=== PATIENT | female | born 1955 | race Caucasian/White ===

== ENCOUNTER 2018-10-12 11:08 | Day surgery (SDC) | payer BC ==
--- NOTE | 2018-10-11 12:27 | HP ---
PREOPERATIVE HISTORY AND PHYSICAL: DATE OF SURGERY/ADMISSION: 10/12/18 DATE OF OFFICE VISIT/ENCOUNTER: 10/11/18 ATTENDING SURGEON: Daija Bonilla MD * (DICTATED BY AZAM OBREGON) PROCEDURE: Open reduction and internal fixation, left wrist. CHIEF COMPLAINT: Left distal radius fracture after fall. HISTORY OF PRESENT ILLNESS: This is a 62-year-old female. 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 She sustained injury to her left wrist on 10/05 when she was in [place] and she tripped over a curb at the [employer]. She landed on an outstretched right hand. She was seen in the emergency room in [place]. The fracture was reduced and splinted, but the doctor there told her that she likely needed surgery. She denies any associated numbness or tingling. She denies any other injury. After review of x-rays and evaluation by Dr. Bonilla, she has consented to proceed with surgical intervention in the form of an open reduction and internal fixation, left wrist. PAST MEDICAL HISTORY: 1. History of TIA approximately 6 years ago. 2. High cholesterol. 3. Hypertension. 4. Anxiety/depression. PAST SURGICAL HISTORY: 1. . 2. Shoulder surgery. CURRENT MEDICATIONS: 1. Aspirin 325 mg daily. 2. Ativan 1 mg daily. 3. Atorvastatin calcium 40 mg daily. 4. Cymbalta daily. 5. Trileptal 300 mg 1 tab 2 a.m., 2 tabs q.h.s. 6. Wellbutrin 1 tab in the morning and 2 tabs in the evening. ALLERGIES: No known drug allergies. FAMILY MEDICAL HISTORY: Heart disease, diabetes, Parkinson's disease. 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 She denies tobacco use and recreational drug use. She drinks alcohol on rare occasion. REVIEW OF SYSTEMS: Negative for general, cephalic, cardiovascular, respiratory , GI, , other musculoskeletal, integumentary, endocrine, neurologic, and hematologic symptoms. Infectious Diseases: Negative for MRSA, hepatitis C, HIV. PHYSICAL EXAMINATION GENERAL: Well-developed, well-nourished 62-year-old female, in no acute distress. VITAL SIGNS: Height 5 feet 6 inches, weight 157 pounds. Pulse rate 79, blood pressure 128/78. HEENT: Normocephalic, atraumatic. Pupils are equal, round, and reactive to light and accommodation. Extraocular movements are intact. Throat is clear. NECK: Supple. No palpable lymph nodes. PULMONARY: Lungs are clear to auscultation bilaterally. No wheezes, rales, or rhonchi. CARDIOVASCULAR: Regular rate and rhythm. S1, S2. No murmurs, rubs, or gallops. No edema. ABDOMEN: Positive bowel sounds, soft, nontender. NEUROLOGICAL: Alert and oriented x3. Cranial nerves II through XII are intact. Sensation is intact to light touch. MUSCULOSKELETAL: On exam of her left wrist, she is maintained in a sugar-tong splint. Her fingers have minimal swelling. She has good movement in the fingers. Neurovascular function is intact. IMAGING STUDIES: X-rays, AP, lateral of the left wrist show comminuted intraarticular fracture of the left distal radius. Post reduction x-rays show persistent apex volar angulation. IMPRESSION: Left distal radius fracture. PLAN: The patient is scheduled to undergo an open reduction and internal fixation, left wrist, with Dr. Bonilla on 10/12/18. She will return to the office 10 days postop for followup and suture removal. A prescription for Tylenol No. 3 was e- scribed to the patient's pharmacy for postoperative pain management. AZAM OBREGON [id number]/[facility] #: [id number] [place]
[~2018-10-12 11:08] MED LIST: Buffered Lidocaine 1% SYRIN* 1 ML/SYRINGE INTRADERM ONE; Bupivacaine 0.5% PF 10 ML VIAL INJ ONE; Dexamethasone TAB* 4 MG PO ONE; Famotidine IV* 10 MG/ML 2 ML (20 mg) IV ONE; Lactated Ringers 1000 ML Bag* 1,000 ML IV SCH
[2018-10-12] MEDS ORDERED: ceFAZolin 2 GM PREMIX in ORs 2 GM/50 ML BAG IVPB ONE (11:18)
[2018-10-12] MEDS ORDERED: Dexamethasone TAB* 4 MG ONE (11:18)
[2018-10-12] MEDS ORDERED: Famotidine IV* 10 MG/ML 2 ML (20 mg) ONE (11:19)
[2018-10-12] MEDS ORDERED: fentaNYL* 50 MCG/ML 2 ML VIAL (100 MCG VIAL) ONE ×2 (12:58→13:26)
[2018-10-12] MEDS ORDERED: Midazolam* 1 MG/ML 2 ML VIAL (2 MG) ONE (12:59)
[2018-10-12] MEDS ORDERED: Lidocaine 1% INJ* 10 MG/ML 30 ML SDV ONE (13:02)
[2018-10-12] MEDS ORDERED: ROPIVACAINE 5 MG/ML 30 ML BTL (0.5%) ONE (13:02)
[2018-10-12] MEDS ORDERED: Remifentanil* 2 MG VIAL ONE (13:28)
[2018-10-12 14:38] VITALS: BP 129/75
--- NOTE | 2018-10-12 21:26 | OP ---
DATE OF OPERATION: 10/12/18 [facility] DATE OF : [birth year]. SURGEON: Daija Bonilla MD FILES SUPERVISOR: AZAM Bashir ANESTHESIA: Block. PRE-OP DIAGNOSIS: Distal radius fracture on the left, comminuted and displaced. POST-OP DIAGNOSIS: Distal radius fracture on the left, comminuted and displaced. OPERATIVE PROCEDURE: Open reduction and internal fixation of the left distal radius fracture. ESTIMATED BLOOD LOSS: Zero. TOURNIQUET TIME: About 30 minutes. INDICATIONS FOR PROCEDURE: Ashley is a 62-year-old woman who has fallen and suffered a fracture of her distal radius. Closed reduction did not achieve adequate alignment. She presents for ORIF of the left distal radius. DESCRIPTION OF PROCEDURE: The patient was brought to the operating room and was given a block anesthetic and placed in the supine position on the operating table with a tourniquet around her left upper arm. Skin of her left upper extremity was prepped and draped in the usual sterile fashion. The hand and forearm were exsanguinated and the tourniquet elevated to 250 mmHg. A longitudinal incision was made over the FCR tendon and we dissected sharply through the superficial and deep portion of the FCR tendon sheath. The flexor pollicis longus muscle and tendon were then retracted ulnarly. The pronator quadratus was incised and subperiosteally dissected off of the distal radius. With traction and manipulation, the fracture fragments were reduced and there were at least 3 articular fragments. These were secured with a Synthes variable angle distal radius plate with 4 distal screws and 3 proximal screws. The position of the hardware and fracture fragments were checked on the C-arm in the AP and lateral views and found to be anatomic. The wound was irrigated. The pronator quadratus was repaired over the plate with 2-0 Vicryl suture. The flexor carpi radialis tendon sheath was repaired with 2-0 Vicryl and the skin edges reapproximated with 4-0 nylon suture. The wound was dressed with Xeroform, 4x4, Webril, and a volar splint. The patient tolerated the procedure well and was brought to the recovery room in good condition. [id number]/[facility] #: [id number] [facility]
--- NOTE | 2018-10-13 11:47 | PN ---
Progress Note - Progress Note Date of Service: 10/13/18 Note: ANESTHESIOLOGY I spoke with the patient by telephone. She reports that the block lasted until approximately 7:00 am this morning and has now resolved completely. Her pain control is satisfactory at this point and she reports no anesthesia-related complaints or problems.
== END 2018-10-12 14:59 | disposition home or self-care (01) ==
LOC: OREAST 11:08
PROVIDERS: ATTEND Orthopaedic Surgery
DX: S52.572A Other intraarticular fracture of lower end of left radius, initial encounter for closed fracture (principal); W18.09XA Striking against other object with subsequent fall, initial encounter; Y92.89 Other specified places as the place of occurrence of the external cause; I10 Essential (primary) hypertension; F41.8 Other specified anxiety disorders; Z86.73 Personal history of transient ischemic attack (TIA), and cerebral infarction without residual deficits; G89.18 Other acute postprocedural pain
CPT/HCPCS: 76000; C1713; C1776; J0690; J2250; J2795; J3010; J8540

== ENCOUNTER 2019-12-04 06:45 | Day surgery (SDC) | payer BC ==
[~2019-12-04 06:45] MED LIST changes: +Acetaminophen TAB* 325 MG PO PRN; -Bupivacaine 0.5% PF 10 ML VIAL INJ ONE; -Dexamethasone TAB* 4 MG PO ONE; -Famotidine IV* 10 MG/ML 2 ML (20 mg) IV ONE; -Lactated Ringers 1000 ML Bag* 1,000 ML IV SCH
[2019-12-04] MEDS ORDERED: Midazolam* 1 MG/ML 2 ML VIAL (2 MG) ONE (08:23)
[2019-12-04 09:37] VITALS: BP 126/69
[2019-12-04] MEDS ORDERED: Povidone Iodine 5% OPTH* 30 ML BTL ONE (10:17)
[2019-12-04] MEDS ORDERED: Lidocaine 1% MPF ** 5 ML VIAL ONE (10:17)
[2019-12-04] MEDS ORDERED: Phenylephrine OPHTH SOL 2.5%* 2 ML ONE (10:17)
[2019-12-04] MEDS ORDERED: Lidocaine 2% w/ EPI 1:200,000* 20 ML SDV VIAL ONE (10:17)
[2019-12-04] MEDS ORDERED: Proparacaine 0.5% OPHTH.SOL* 15 ML BTL ONE (10:17)
[2019-12-04] MEDS ORDERED: acetaZOLAMIDE TAB* 250 MG ONE (10:17)
[2019-12-04] MEDS ORDERED: Cyclopentolate 1% OPTH.SOL* 2 ML BTL ONE (10:17)
[2019-12-04] MEDS ORDERED: Ketorolac 0.5% OPHTH (NF) 0.5 % 5 ML BTL ONE (10:17)
[2019-12-04] MEDS ORDERED: Neomycin/Polymy/Dex OPTH.SUSP* MAXITROL 0.1% 5 ML ONE (10:17)
--- NOTE | 2019-12-04 16:41 | OP ---
DATE OF OPERATION: 12/04/2019 [facility] DATE OF : 1955. SURGEON: Dashawn Tucker M.D. PREOPERATIVE DIAGNOSIS: Cataract right eye. POSTOPERATIVE DIAGNOSIS: Cataract right eye. OPERATIVE PROCEDURE: Extracapsular cataract extraction with intraocular lens implant right eye. DESCRIPTION OF PROCEDURE: The patient was brought to the operating room after being given 1/2% Alcaine with epinephrine drops in the preoperative area. The eye was prepped and draped in the usual sterile fashion. Sterile drape and eyelid speculum were placed. Again, topical 1/2% Alcaine with epinephrine was given. A paracentesis incision was made at the 9 o'clock position with the No.75 blade. Clear cornea incision 2.2 x 2.2-mm was created at the 12 o'clock position starting at the anterior limbus using the 2.2-mm keratome. The anterior chamber was irrigated with 0.4 mL of 1% non-preservative intracameral lidocaine and filled with DisCoVisc. A capsulorrhexis was completed using the cystotome and the Utrata forceps. Hydrodissection was performed with balanced salt solution. The lens nucleus was removed with the Phacoemulsification handpiece without incident. Cortex was removed with the irrigation-aspiration handpiece. The capsular bag was re-inflated using DisCoVisc and an [id number] implant was inserted with the shooter, oriented to the 178 degree meridian. All measurements were confirmed with ORA. Horizontal reference arita were made with the patient in a seated position in the preoperative area. The irrigation- aspiration handpiece was used to remove all residual DisCoVisc. The eye was refilled with balanced salt solution and the wound checked and found to be watertight. Topical Maxitrol drops were given. [id number]/[facility] #: [id number] [facility]
== END 2019-12-04 09:27 | disposition home or self-care (01) ==
LOC: OREAST 06:45
PROVIDERS: ATTEND Specialist
DX: H25.811 Combined forms of age-related cataract, right eye (principal); H35.372 Puckering of macula, left eye; H43.813 Vitreous degeneration, bilateral; E78.00 Pure hypercholesterolemia, unspecified; F41.8 Other specified anxiety disorders
CPT/HCPCS: A9270-GY; J2250; V2787